=== PATIENT | male | born 1985 | race Caucasian/White ===

== ENCOUNTER 2023-12-18 07:34 | Emergency (ER) | payer OTHER ==
--- NOTE | 2023-12-18 07:51 | ED Physician Documentation ---
PD HPI LOWER EXT INJURY - Stated complaint Stated Complaint: R FOOT PX - Chief complaint Chief Complaint: Ext Problem - History obtained from History obtained from: Patient - History of Present Illness PD HPI LOW EXT INJURY LOCATION: Right, Foot Type of injury: Other (he was walking to outer part of foot due to gout flare near great toe. Now has pain lateral dorsal aspect of the foot. Redness and tender.). No: Fall, Twist Where injury occurred: Home Timing - onset: How many days ago (2-3) Timing - duration: Days (2-3) Timing - details: Gradual onset, Still present Improved by: No: Meds (has been using Indocin and tylenol for 2 weeks for initial gout and now this, without much resolution.) Worsened by: Moving, Palpating Associated symptoms: Swelling, Discolored (red on dorsolateral aspect of foot and around little toe MTP.). No: Weakness, Numbness Similar symptoms before: Diagnosis (gout) Review of Systems Constitutional: denies: Fever, Chills Neurologic: denies: Focal weakness, Numbness PD PAST MEDICAL HISTORY - Past Medical History Past Medical History: No Musculoskeletal: Gout - Past Surgical History Past Surgical History: No - Present Medications Home Medications: Ambulatory Orders Medication Instructions Recorded Confirmed Colchicine 0.6 mg PO BID #10 tablet 12/18/23 HYDROcod/ACETAM 5/325 [[place] 5/325] 1 ea PO Q6H PRN #14 tablet 12/18/23 Meloxicam [Mobic] 7.5 mg PO BID 10 Days #20 tablet 12/18/23 dexAMETHasone [Decadron] 4 mg PO DAILY #5 tablet 12/18/23 - Allergies Allergies/Adverse Reactions: Allergies Allergy/AdvReac Type Severity Reaction Status Date / Time Penicillins Allergy Rash Verified 12/18/23 07:46 - Social History Does the pt smoke?: No Smoking Status: Never smoker Does the pt drink ETOH?: No Does the pt have substance abuse?: No - Immunizations Immunizations are current?: Yes - POLST Patient has POLST: No PD ED PE NORMAL - Vitals Vital signs reviewed: Yes - General General: Alert and oriented X 3, Well developed/nourished - Derm Derm: Normal color, Warm and dry - Extremities Extremities: Other (dorsolateral foot and around fifth MTP with redness, swelling, tender. No skin sores nor wounds. ) - Neuro Neuro: No motor deficit, No sensory deficit Results - Vitals Vitals: Oxygen O2 Source Room air - Labs Labs: Laboratory Tests 12/18/23 08:15 Sodium 138 Potassium 4.3 Chloride 105 Carbon Dioxide 25 Anion Gap 8.0 BUN 15 Creatinine 1.1 Estimated GFR (MDRD) 75 L Glucose 125 H Calcium 9.7 Magnesium 1.7 PD Medical Decision Making - ED course Complexity details: considered differential (appears extended location of gout flare. Base of great toe minimally tender. Can change from Indocin to decadron and colchicine, then trasition to different NSAID for extended time. Also hole allopurinol until resolved. ), d/w patient Departure - Departure Disposition: Home, Self Care Clinical Impression: Acute foot pain, Exacerbation of gout Condition: Stable Record reviewed to determine appropriate education?: Yes Instructions: ED Arthritis Gout, ED Diet Gout Follow-Up: OSMIN CUELLAR MD [Primary Care Provider] - Prescriptions: Colchicine 0.6 mg PO BID #10 tablet dexAMETHasone [Decadron] 4 mg PO DAILY #5 tablet Meloxicam [Mobic] 7.5 mg PO BID 10 Days #20 tablet HYDROcod/ACETAM 5/325 [[place] 5/325] 1 ea PO Q6H PRN #14 tablet PRN Reason: Pain Comments: Since this flareup has been persisting despite the usual indomethacin along with your allopurinol, we will try switching out medicines a bit. For the next 5 days use dexamethasone steroid anti-inflammatory daily combined with colchicine 2 or 3 times daily with food to less bother your stomach. To that add Tylenol 500 to 650 mg every 4-6 hours if needed for pain or hydrocodone/acetaminophen if needed for worse pain every 4-6 hours. This would likely be needed just in the short-term for 1 to 3 days. Once done with the steroids, assuming you are gout flareup is much improved, I would then switch over to meloxicam NSAID for the next 7 to 10 days.. Meanwhile for the next week, I would hold your allopurinol as sometimes continued use of it will inhibit clearance of the uric acid from the joint. Assuming you are all better by a week's time, you can resume the allopurinol. Crutches and partial to no weightbearing as needed for comfort. Off work today and tomorrow. Activity as tolerated. I sent your prescription to [facility] pharmacy. I am prescribing a short course of narcotic pain medication for you. These are potentially dangerous and addictive medications that should be used carefully. These medications may constipate you. Take an [id number] stool softener such as docusate twice daily with plenty of water while taking these medications. If you go 24 hours without a bowel movement, take [id number] MiraLAX, per package instructions. Do not drink or drive while taking these medications. If you received narcotic or sedating medications while in the emergency department do not drive for 24 hours. Store this medication in a safe, secure place and out of reach of children. It is a violation of federal law to give or sell this medication to another person or to use in a manner other than prescribed. The ED will not refill narcotic prescriptions, including prescriptions lost or stolen. You can dispose of unwanted medications at the [facility]'s office or at several pharmacies such as [facility]. Forms: PCP List, Activity restrictions Discharge Date/Time: 12/18/23 09:30
[2023-12-18] MEDS: HYDROcod/ACETAM 5/325 MG TABLET PO STA (08:20)
[2023-12-18] MEDS: dexAMETHasone 4 MG TABLET PO STA (08:20)
[2023-12-18 08:40] LABS: CALCIUM 9.7 mg/dL (8.5-10.3); CREATININE 1.1 mg/dL (0.6-1.3); MAGNESIUM 1.7 mg/dL (1.7-2.3); POTASSIUM 4.3 mmol/L (3.5-4.5)
[2023-12-18 09:38] VITALS: BP 138/64; O2SAT 100
== END 2023-12-18 09:30 | disposition home or self-care (01) ==
LOC: ED 07:34
DX: M79.671 Pain in right foot (principal); M10.9 Gout, unspecified
CPT/HCPCS: 36415; 80048; 83735; 99283; 99284; A9270; J8540